=== PATIENT | male | born 2000 | race Asian ===

== ENCOUNTER 2021-09-16 22:17 | Inpatient (IN) | payer OTHER, BC ==
[2021-09-16] MEDS ORDERED: hydrALAZINE 20 MG/ML VIAL SLOW IVP PRN (23:33)
[2021-09-16] MEDS ORDERED: Ondansetron PF 4 MG/2 ML Vial IVP PRN (23:33)
[2021-09-16] MEDS ORDERED: Promethazine HCl 25 MG/ML VIAL IM PRN (23:33)
[2021-09-16] MEDS ORDERED: Cyclobenzaprine 10 MG TAB PO PRN (23:39)
[2021-09-16] MEDS ORDERED: traMADol HCl 50 MG TAB PO PRN (23:39)
[2021-09-16] MEDS ORDERED: Ketorolac Tromethamine 30 MG/ML VIAL IVP SCH (23:45)
[2021-09-16] MEDS ORDERED: Morphine 4 MG/ML VIAL SLOW IVP PRN (23:55)
[2021-09-17] MEDS: Sodium Chloride 0.9% 1,000 ML IV SCH ×2 (00:39→11:47)
[2021-09-17] MEDS: traMADol HCl 50 MG TAB PO SCH ×4 (00:40→18:14)
[2021-09-17] MEDS: Acetaminophen 325 MG TAB PO SCH ×4 (00:40→18:14)
[2021-09-17 00:45] VITALS: BMI 30.5
[2021-09-17] MEDS ORDERED: Gentamicin Sulfate 120 MG in Premix Bag 1 BAG IVPB SCH (01:00)
[2021-09-17 06:01] LABS: #Eosinphils 0.1 thou/uL (0.0-0.7); #Lymphocytes 2.5 thou/uL (1.20-3.40); #Monocytes 1.4 thou/uL (0.11-0.59); #Neutrophils 8.1 thou/uL (1.40-6.50); %Basophils 0.2 % (0.0-1.0); %Eosinophils 0.5 % (0.0-10.0); %Lymphocytes 20.6 % (21.0-51.0); %Monocytes 11.7 % (0.0-10.0); Hemoglobin 14.4 g/dL (14.0-18.0); Mean Corpuscular HGB CONC 32.6 g/dL (32.0-36.0); Mean Corpuscular Hemoglobin 31.1 pg (27.0-31.0); Mean Corpuscular Volume 95.5 fL (78.0-98.0); Mean Platelet Volume 6.5 fL (7.4-10.4); Platelet Count 237 thou/uL (130-400); RBC Distribution Width 11.5 % (11.5-14.5); Red Blood Cell (RBC) Count 4.63 mill/uL (4.70-6.10); White Blood Cell (WBC) Count 12.1 thou/uL (4.8-10.8)
[2021-09-17 06:10] LABS: PTT 30.8 sec (22.9-36.1); Prothrombin Time 13.6 sec (12.0-14.7)
[2021-09-17 06:21] LABS: Anion Gap 14 mmol/L (10-20); BUN (Urea Nitrogen) 11 mg/dL (8.9-20.6); Calc. Creatinine Clearance 184 mL/min (70-130); Calcium 8.4 mg/dL (7.8-10.44); Carbon Dioxide 21 mmol/L (22-29); Chloride 109 mmol/L (98-107); Glucose 94 mg/dL (70-105); Potassium 3.5 mmol/L (3.5-5.1); Sodium 140 mmol/L (136-145)
[2021-09-17] MEDS: CEFAZOLIN 2 GM, Admixture Fee 1 EACH in Sodium Chloride 0.9% 100 ML IVPB SCH ×3 (06:37→20:42)
[2021-09-17] MEDS: Ketorolac Tromethamine 30 MG/ML VIAL IVP SCH ×3 (06:41→18:14)
[2021-09-17] MEDS ORDERED: ceFAZolin 2 GM/Dextrose 50 ML 2 GM in Premix Bag 1 BAG IVPB SCH (07:45)
[2021-09-17] MEDS: Famotidine/PF 20 mg/2ml Vial SLOW IVP SCH ×2 (09:12→20:41)
[2021-09-17] MEDS: Polyethylene Glycol 3350 17 GM Packet PO SCH (11:47)
[2021-09-17] MEDS: Senokot S 8.6-50 MG TAB PO SCH ×2 (11:47→20:39)
[2021-09-17] MEDS ORDERED: Ondansetron PF 4 MG/2 ML Vial ONE (12:00)
[2021-09-17] MEDS ORDERED: Lidocaine 1% PF 5 ML VIAL ONE (12:00)
[2021-09-17] MEDS ORDERED: Dexamethasone 20 MG/5 ML VIAL ONE (12:00)
[2021-09-17] MEDS ORDERED: PROPOFOL 200 MG/20 ML VIAL ONE (12:00)
[2021-09-17] MEDS ORDERED: Ketorolac Tromethamine 30 MG/ML VIAL ONE (12:00)
[2021-09-17] MEDS ORDERED: Bacitracin Zinc Ointment 30 gm TUBE ONE ×2 (12:07→12:09)
[2021-09-17] MEDS ORDERED: HYDROmorphone 2 MG/ML VIAL ONE (12:10)
[2021-09-17] MEDS ORDERED: HYDROmorphone 2 MG/ML VIAL SLOW IVP PRN (13:18)
[2021-09-17] MEDS ORDERED: Promethazine HCl 25 MG/ML VIAL IM PRN (13:18)
[2021-09-17] MEDS ORDERED: Ondansetron HCl/PF 4 MG/2 ML Vial IVP PRN (13:18)
[2021-09-17] MEDS ORDERED: Promethazine HCl 25 MG/ML VIAL IVPB PRN (13:18)
[2021-09-17] MEDS ORDERED: PACU-Morphine 4MG/ML VIAL SLOW IVP PRN (13:18)
[2021-09-17] MEDS: Ibuprofen 200 MG TAB PO SCH (20:39)
[2021-09-18] MEDS: Acetaminophen 325 MG TAB PO SCH ×5 (00:10→23:29)
[2021-09-18] MEDS: traMADol HCl 50 MG TAB PO SCH ×5 (00:10→23:29)
[2021-09-18] MEDS: CEFAZOLIN 2 GM, Admixture Fee 1 EACH in Sodium Chloride 0.9% 100 ML IVPB SCH ×3 (04:30→20:22)
[2021-09-18] MEDS: Ibuprofen 200 MG TAB PO SCH ×3 (04:30→20:23)
[2021-09-18 06:05] LABS: #Lymphocytes 1.2 thou/uL (1.20-3.40); #Monocytes 1.4 thou/uL (0.11-0.59); #Neutrophils 10.3 thou/uL (1.40-6.50); %Basophils 0.1 % (0.0-1.0); %Eosinophils 0.1 % (0.0-10.0); %Lymphocytes 9.6 % (21.0-51.0); %Monocytes 10.8 % (0.0-10.0); %Neutrophils 79.4 % (42.0-75.0); Hemoglobin 14.3 g/dL (14.0-18.0); Mean Corpuscular HGB CONC 32.3 g/dL (32.0-36.0); Mean Corpuscular Hemoglobin 31.7 pg (27.0-31.0); Mean Corpuscular Volume 98.2 fL (78.0-98.0); Mean Platelet Volume 6.8 fL (7.4-10.4); Platelet Count 235 thou/uL (130-400); RBC Distribution Width 11.3 % (11.5-14.5); Red Blood Cell (RBC) Count 4.52 mill/uL (4.70-6.10)
[2021-09-18 06:29] LABS: Anion Gap 11 mmol/L (10-20); BUN (Urea Nitrogen) 8 mg/dL (8.9-20.6); Calc. Creatinine Clearance 171 mL/min (70-130); Carbon Dioxide 25 mmol/L (22-29); Chloride 109 mmol/L (98-107); Glucose 120 mg/dL (70-105); Magnesium 1.9 mg/dL (1.6-2.6); Phosphorus 2.8 mg/dL (2.3-4.7); Potassium 3.6 mmol/L (3.5-5.1); Sodium 141 mmol/L (136-145)
[2021-09-18] MEDS ORDERED: Magnesium 2 GM/50 ML(in water) 2 GM in Premix Bag 1 BAG IVPB SCH (08:30)
[2021-09-18] MEDS ORDERED: Potassium Phosphate 15 MMOL in Sodium Chloride 0.9% 250 ML 250 ML IVPB SCH (08:30)
[2021-09-18] MEDS: Saccharomyces boulardii 250 MG CAP PO SCH (09:15)
[2021-09-18] MEDS: Lisinopril 10 MG TAB PO SCH (09:15)
[2021-09-18] MEDS: Famotidine/PF 20 mg/2ml Vial SLOW IVP SCH ×2 (09:15→20:23)
[2021-09-18] MEDS: Senokot S 8.6-50 MG TAB PO SCH ×2 (09:15→20:23)
[2021-09-18] MEDS: Polyethylene Glycol 3350 17 GM Packet PO SCH (09:15)
[2021-09-18] MEDS ORDERED: Morphine 4 MG/ML VIAL SLOW IVP PRN (09:27)
[2021-09-19] MEDS: CEFAZOLIN 2 GM, Admixture Fee 1 EACH in Sodium Chloride 0.9% 100 ML IVPB SCH ×2 (05:25→12:09)
[2021-09-19] MEDS: Acetaminophen 325 MG TAB PO SCH ×3 (06:00→17:14)
[2021-09-19] MEDS: Ibuprofen 200 MG TAB PO SCH ×2 (06:00→12:10)
[2021-09-19] MEDS: traMADol HCl 50 MG TAB PO SCH ×3 (06:00→17:15)
[2021-09-19] MEDS: Saccharomyces boulardii 250 MG CAP PO SCH (08:49)
[2021-09-19] MEDS: Polyethylene Glycol 3350 17 GM Packet PO SCH (08:50)
[2021-09-19] MEDS: Lisinopril 10 MG TAB PO SCH (08:50)
[2021-09-19] MEDS: Senokot S 8.6-50 MG TAB PO SCH (08:50)
[2021-09-19] MEDS ORDERED: Famotidine 20 MG TAB PO SCH (09:00)
[2021-09-19 20:23] VITALS: BP 167/98; TEMP 98.5
== END 2021-09-19 20:05 | disposition home or self-care (01) | DRG 465 ==
LOC: SURG A 23:29
PROVIDERS: ADMIT Surgery; ATTEND Surgery
PROC: 0HCKXZZ Extirpation of Matter from Right Lower Leg Skin, External Approach (ICD-10-PCS; principal; 2021-09-17)
PROC: 0JBP0ZZ Excision of Left Lower Leg Subcutaneous Tissue and Fascia, Open Approach (ICD-10-PCS; 2021-09-17)
PROC: 0HDKXZZ Extraction of Right Lower Leg Skin, External Approach (ICD-10-PCS; 2021-09-17)
PROC: 0HCLXZZ Extirpation of Matter from Left Lower Leg Skin, External Approach (ICD-10-PCS; 2021-09-17)
PROC: 0HCEXZZ Extirpation of Matter from Left Lower Arm Skin, External Approach (ICD-10-PCS; 2021-09-17)
PROC: 0HCDXZZ Extirpation of Matter from Right Lower Arm Skin, External Approach (ICD-10-PCS; 2021-09-17)
DX: S52.121B Displaced fracture of head of right radius, initial encounter for open fracture type I or II (principal); I10 Essential (primary) hypertension; F17.210 Nicotine dependence, cigarettes, uncomplicated; S80.212A Abrasion, left knee, initial encounter; S80.211A Abrasion, right knee, initial encounter; S50.311A Abrasion of right elbow, initial encounter; S81.012A Laceration without foreign body, left knee, initial encounter; S30.1XXA Contusion of abdominal wall, initial encounter; M71.522 Other bursitis, not elsewhere classified, left elbow; V29.9XXA Motorcycle rider (driver) (passenger) injured in unspecified traffic accident, initial encounter; Y92.89 Other specified places as the place of occurrence of the external cause
CPT/HCPCS: 36415; 80048; 83735; 84100; 85025; 85610; 85730; J0690; J1100; J1170; J1580; J1885; J2270; J2405; J2704; J3475; J3490; J7050; S0028